=== PATIENT | male | born 1945 | race Caucasian/White ===

== ENCOUNTER 2017-10-17 16:28 | Observation (INO) | payer MEDICARE, BC ==
[~2017-10-17] VITALS: Ht 172.7 cm; Wt 92.6 kg
[2017-10-17] VITALS (7 sets, daily range): BP systolic 165–195; BP diastolic 84–98; PULSE 46–53; RESP 19–20; TEMP 97.6–98.4; O2SAT 95–98
[~2017-10-17 16:28] MED LIST: ACETAMINOPHEN 325 MG TAB PO PRN; ASPI81TA23 PO; ATEN50TA PO; AXIT5TAB PO; DILT1TAB4 PO; FOLICAP PO; GEMF600T PO; LEVO5TAB8 PO; LISI40TA PO; NALOXONE HCL 0.4 MG/ML AMP IV PUSH PRN; SODIUM CHLORIDE 0.9% FLUSH 10 ML FLUSH IV FLUSH PRN; TRIA37.53 PO
[2017-10-17] MEDS ORDERED: LEVO75TA3 PO (18:25)
[2017-10-17] MEDS ORDERED: NYST1POW12 TOPICAL (18:25)
[2017-10-17] MEDS ORDERED: ENALAPRILAT 1.25 MG/ML VIAL IV PUSH PRN (20:00)
[2017-10-17] MEDS: SODIUM CHLORIDE 0.9% FLUSH 10 ML FLUSH IV FLUSH SCH (20:45)
[2017-10-17] MEDS ORDERED: ATENOLOL 50 MG TAB PO SCH (21:00)
[2017-10-17] MEDS ORDERED: NYST0.1P (23:52)
[2017-10-18] VITALS: PULSE 48
[2017-10-18] MEDS: INLYTA 5 MG PO SCH ×2 (00:15→10:11)
[2017-10-18 03:58] VITALS: BP 151/84; PULSE 53; RESP 18; TEMP 97.7; O2SAT 98
[2017-10-18 04:00] VITALS: BP 151/84; PULSE 52; PULSE 53; RESP 18; TEMP 97.7; O2SAT 98
[2017-10-18 06:29] LABS: AUTOMATED NEUTROPHIL # 3.5 TH/MM3 (1.8-7.7); BASOPHIL % 0.2 % (0.0-2.0); EOSINOPHIL # 0.5 TH/MM3 (0-0.4); EOSINOPHIL % 9.5 % (0.0-4.0); HEMATOCRIT 40.9 % (39.0-51.0); HEMOGLOBIN 13.8 GM/DL (13.0-17.0); LYMPH % 12.2 % (9.0-44.0); LYMPHOCYTE # 0.6 TH/MM3 (1.0-4.8); MEAN CELL VOLUME 101.2 FL (80.0-100.0); MEAN CORPUSCULAR HEMOGLOBIN 34.1 PG (27.0-34.0); MEAN CORPUSCULAR HGB CONC 33.7 % (32.0-36.0); MEAN PLATELET VOLUME 7.2 FL (7.0-11.0); MONO % 12.2 % (0.0-8.0); MONOCYTE # 0.6 TH/MM3 (0-0.9); NEUT % 65.9 % (16.0-70.0); PLATELET COUNT 339 TH/MM3 (150-450); RED BLOOD COUNT 4.04 MIL/MM3 (4.50-5.90); RED CELL DISTRIBUTION WIDTH 13.5 % (11.6-17.2); WHITE BLOOD COUNT 5.2 TH/MM3 (4.0-11.0)
[2017-10-18 06:31] LABS: CHLORIDE 106 MEQ/L (98-107); SODIUM (NA) 139 MEQ/L (136-145)
[2017-10-18 06:34] LABS: CALCIUM 9.2 MG/DL (8.5-10.1)
[2017-10-18 06:35] LABS: ALBUMIN 3.2 GM/DL (3.4-5.0); BICARBONATE 21.1 MEQ/L (21.0-32.0); BLOOD UREA NITROGEN 17 MG/DL (7-18); GLUCOSE,RANDOM 104 MG/DL (74-106)
[2017-10-18 06:38] LABS: ALT (GPT) 23 U/L (12-78); AST (GOT) 28 U/L (15-37); GLOMERULAR FILTRATION RATE 74 ML/MIN (>89)
[2017-10-18 06:40] LABS: TOTAL BILIRUBIN ADULT 0.6 MG/DL (0.2-1.0); TOTAL PROTEIN 7.5 GM/DL (6.4-8.2)
[2017-10-18 06:41] LABS: ALKALINE PHOSPHATASE 79 U/L (45-117)
[2017-10-18 08:00] VITALS: BP 129/77; PULSE 54; PULSE 58; RESP 18; TEMP 97.8; O2SAT 98
[2017-10-18] MEDS ORDERED: IODIXANOL 320 MG/ML 10 ML VIAL (for Rad CT) IVCONTRAST ONE (08:00)
--- NOTE | 2017-10-18 08:25 | RADRPT ---
EXAM DATE: 10/18/2017 7:59 AM EDT AGE/SEX: 71 years / Male INDICATIONS: Chest pain. Elevated D-dimer. Evaluate for pulmonary embolism. CLINICAL DATA: This is the patient's initial encounter. Patient reports that signs and symptoms have been present for 2 days and indicates a pain score of 1/10. MEDICAL/SURGICAL HISTORY: Carcinoma, prostatic. Renal cell carcinoma. Hypertension. Nephrectomy, left. RADIATION DOSE: 19.93 CTDI (mGy) COMPARISON: No prior exams available for comparison. TECHNIQUE: Volumetric scanning was performed using a multi-row detector CT scanner during bolus infu zack of 50 ml Visipaque 320 (iodixanol) nonionic water-soluble contrast as a single exam dose. The d alberto was post processed with a variety of visualization algorithms including full volume maximum inten sity projection and sliding thin slab reformation. Using automated exposure control and adjustment o f the mA and/or kV according to patient size, radiation dose was kept as low as reasonably achievable to obtain optimal diagnostic quality images. DICOM format image data is available electronically fo r review and comparison. FINDINGS: Pulmonary Arteries: No filling defect is identified through the segmental and some of the subsegmenta l level pulmonary arteries. Lungs: No consolidation or pneumothorax is identified. Mediastinum: The heart and great vessels demonstrate no acute abnormality. There is extensive medias tinal lymphadenopathy with superior mediastinal lymph node on the last measuring 3.3 x 2.8 cm, enlarg ed AP window lymph node measuring 2.2 x 2.0 cm, an enlarged subcarinal lymph node measuring 4.4 x 3.1 cm, and an enlarged precarinal lymph node measuring 1.7 cm in short axis diameter. There is coronary artery calcification and moderate atherosclerotic disease of the aorta. Pleurae: There is trace left pleural fluid. No pleural thickening is present. Axillae: No lymphadenopathy. Musculoskeletal: No acute osseous abnormality is identified. There are degenerative changes of the t horacic spine. No lytic or blastic lesion is seen. Other: There are multiple lymph nodes in the upper abdomen and retroperitoneum with one of the large r lymph nodes measuring 2.7 x 2.0 cm. Also, there is enlarged left supraclavicular lymph node measuri ng 4.4 x 2.7 cm. A low-density lesion in the right lobe of the liver measures 2.5 cm and has density measurements characteristic of a hepatic cyst. CONCLUSION: 1. No PE is identified. There is trace left pleural fluid but otherwise no acute pulmonary abnormali ty is identified. 2. Extensive lymphadenopathy within the mediastinum, left supraclavicular region, and visualized upp er abdomen. Etiology is not identified on this examination and top differential diagnostic considerat ions are lymphoma or metastatic disease. Suggest obtaining abdomen and pelvis CT with IV contrast for further evaluation of the abdomen and pelvis. The patient may ultimately need biopsy of one of the l ymph nodes for further evaluation. 3. Coronary artery calcification and moderate atherosclerotic disease of the aorta. Electronically signed by: Naun Ricardo MD 10/18/2017 8:24 AM EDT
[2017-10-18] MEDS ORDERED: NYSTATIN 100,000 U/GM PWD 15 GM BTL TOPICAL SCH (09:00)
[2017-10-18] MEDS: SODIUM CHLORIDE 0.9% FLUSH 10 ML FLUSH IV FLUSH SCH (10:11)
--- NOTE | 2017-10-18 10:16 | HHI.HP ---
[facility] Primary Care Physician Non-Staff Admission Diagnosis Diagnoses: (1) Accelerated hypertension Diagnosis: Principal Chief Complaint: Elevated blood pressure Travel History International Travel<30 Days: No Contact w/Intl Traveler <30 Da: No History of Present Illness 71-year-old male with known history of hypertension, hyperlipidemia, stage IV renal carcinoma, hypothyroidism, history of prostate cancer who presented to the emergency department for evaluation of elevated blood pressure. Patient is currently undergoing immunotherapy with IV infusion and p.o. medication by Dr. Collins in [place]. Patient had developed a rash in his groin area and home health care was following him. They have been monitoring blood pressure and noticed that his systolic letter has been running high recently. They have been in contact with his primary medical doctor, however his primary doctor is out of the office at this time. Because her blood pressure was elevated they went to the emergency department for evaluation. Patient was given Apresoline in the emergency department with improvement of his blood pressure. The daughter was at bedside was able to obtain further information from her. The patient's systolic blood pressure has been elevated and patient has had bradycardia. She did some research and noticed that the immunotherapy medication that he is taking and will actually cause elevation in the blood pressure. Patient did not receive any medication last evening and his blood pressure has been stable since being hospitalized. They indicate that he does have infusion arranged for today. I long discussion with the patient, daughter about possible treatment plans. Will need to discuss further with his biomedical doctor and oncologist for treatment. Currently the patient is resting comfortably. Patient in agreement with treatment plan of contacting his primary call doctor, oncologist and discharged home. Patient denies any other symptoms. He adamantly indicates that he never had any type of chest pain, there is been no nausea, vomiting, diaphoresis. Patient states that he did have a problem with diarrhea in the past, however he takes fiber in he has not had any loose stools since then. Review of Systems Constitutional: DENIES: Diaphoretic episodes, Fatigue, Fever, Weight gain, Weight loss, Chills, Dizziness, Change in appetite, Night Sweats Eyes: DENIES: Blurred vision, Diplopia, Eye pain, Photosensitivity, Double Vision Ears, nose, mouth, throat: DENIES: Tinnitus, Hearing loss, Nasal discharge, Oral lesions, Throat pain, Ear Pain, Running Nose, Sinus Pain Respiratory: DENIES: Apneas, Cough, Snoring, Wheezing, Hemoptysis, Sputum production, Shortness of breath Cardiovascular: DENIES: Chest pain, Palpitations, Syncope, Dyspnea on Exertion , Lower Extremity Edema, Orthopnea Gastrointestinal: DENIES: Abdominal pain, Black stools, Bloody stools, Constipation, Diarrhea, Nausea, Vomiting, Difficulty Swallowing, Anorexia Musculoskeletal: COMPLAINS OF: Joint pain Neurologic: DENIES: Abnormal gait, Headache, Localized weakness, Paresthesias, Speech Problems, Tremor, Poor Balance Psychiatric: DENIES: Anxiety, Confusion, Mood changes, Depression Past Family Social History Past Medical History Hypertension Hyperlipidemia Stage IV renal carcinoma Osteoarthritis of the right hip History of prostate cancer Past Surgical History Tonsillectomy Lymph node biopsy Left nephrectomy Incisional hernia repair Right hand fifth digit fracture repair Reported Medications Reported Meds & Active Scripts Active Reported Nyata (Nystatin (Topical)) 100,000 Unit/Gram Pow Levothyroxine (Levothyroxine Sodium) 75 Mcg Tab 75 Mcg PO DAILY Nystatin 100,000 Unit/Gram Powder 100,000 Units TOPICAL BID Triamterene-Hydrochlorothiazide 37.5-25 Mg Cap 1 Cap PO DAILY Xyzal (Levocetirizine Dihydrochloride) 5 Mg Tablet 1 Tab PO DAILY Aspirin EC (Aspirin) 81 Mg Tabdr 81 Mg PO DAILY Gemfibrozil 600 Mg Tab 600 Mg PO BIDAC Take 30 minutes prior to breakfast and dinner. Inlyta (Axitinib) 5 Mg Tablet 1 Tab PO BID Folivane-F 125-1 mg (Ferrous Fumarate-Iron Polysacc) 125 Mg-1 Mg-40 Mg-3 Mg Cap 1 Tab PO DAILY Atenolol 50 Mg Tab 50 Mg PO BID Lisinopril 40 Mg Tab 40 Mg PO DAILY Diltiazem ER 24 HR 240 Mg Gume 240 Mg PO DAILY Allergies: Coded Allergies: No Known Allergies (Unverified , 10/17/17) Family History Reviewed is significant for both mother and father with diabetes, father had cancer Social History Patient denies any tobacco, alcohol or illicit drug Physical Exam Vital Signs Vital Signs Date Time Temp Pulse Resp B/P (MAP) Pulse Ox O2 Delivery O2 Flow Rate FiO2 10/18/17 04:00 52 10/18/17 04:00 97.7 53 18 151/84 (106) 98 10/18/17 03:58 97.7 53 18 151/84 (106) 98 10/18/17 01:28 19 10/18/17 00:00 48 10/17/17 23:36 97.8 51 19 165/84 (111) 97 10/17/17 20:00 46 10/17/17 19:54 97.6 46 19 195/98 (130) 97 10/17/17 19:50 97 21 10/17/17 18:38 98 21 10/17/17 18:00 53 10/17/17 16:20 98.4 48 20 186/91 (122) 95 Physical Exam GENERAL: Well-developed, well-nourished, in no acute distress. alert and orientated HEENT: Head is normocephalic without any lesions or masses noted. Facial features are symmetric. Eyes: Pupils equal round reactive to light. Extraocular muscles are intact. Conjunctivae were clear. Oropharyngeal: Pharynx without any erythema edema. Tongue is midline without deviation. Buccal mucosa is moist without any masses or lesions NECK: Supple without any masses. Trachea midline no deviation. No JVD, no bruits are appreciated CARDIAC: Regular rhythm, regular rate. S1/S2 are heard. No murmurs gallops or rubs. LUNGS: Clear to auscultation bilaterally. No wheeze, rhonchi or rales. No use of accessory muscles on inspiration or expiration. ABDOMEN: Soft, nontender. Nondistended. Bowel sounds heard in all 4 quadrants. No organomegaly or masses. Negative rebound, negative guarding EXTREMITIES: No edema, pulses are equal bilaterally. No cyanosis or clubbing NEUROLOGY: Mood and affect appear appropriate. Cranial nerves II through XII grossly intact. Muscle strength 5/5 in upper and lower extremities bilaterally. Deep tendon reflexes are 2+ in upper and lower extremities bilaterally. Laboratory Laboratory Tests Test 10/17/17 17:12 10/17/17 22:16 10/18/17 05:48 Troponin I LESS THAN 0.02 LESS THAN 0.02 White Blood Count 5.2 Red Blood Count 4.04 Hemoglobin 13.8 Hematocrit 40.9 Mean Corpuscular Volume 101.2 Mean Corpuscular Hemoglobin 34.1 Mean Corpuscular Hemoglobin Concent 33.7 Red Cell Distribution Width 13.5 Platelet Count 339 Mean Platelet Volume 7.2 Neutrophils (%) (Auto) 65.9 Lymphocytes (%) (Auto) 12.2 Monocytes (%) (Auto) 12.2 Eosinophils (%) (Auto) 9.5 Basophils (%) (Auto) 0.2 Neutrophils # (Auto) 3.5 Lymphocytes # (Auto) 0.6 Monocytes # (Auto) 0.6 Eosinophils # (Auto) 0.5 Basophils # (Auto) 0.0 CBC Comment DIFF FINAL Differential Comment Blood Urea Nitrogen 17 Creatinine 1.00 Random Glucose 104 Total Protein 7.5 Albumin 3.2 Calcium Level 9.2 Alkaline Phosphatase 79 Aspartate Amino Transf (AST/SGOT) 28 Alanine Aminotransferase (ALT/SGPT) 23 Total Bilirubin 0.6 Sodium Level 139 Potassium Level 3.8 Chloride Level 106 Carbon Dioxide Level 21.1 Anion Gap 12 Estimat Glomerular Filtration Rate 74 Result Diagram: 10/18/17 0548 10/18/17 [address] Angiography 10/18/17 0000 Signed Impressions: CONCLUSION: 1. No PE is identified. There is trace left pleural fluid but otherwise no acu te pulmonary abnormality is identified. 2. Extensive lymphadenopathy within the mediastinum, left supraclavicular courtney on, and visualized upper abdomen. Etiology is not identified on this examinatio n and top differential diagnostic considerations are lymphoma or metastatic dis ease. Suggest obtaining abdomen and pelvis CT with IV contrast for further eval uation of the abdomen and pelvis. The patient may ultimately need biopsy of one of the lymph nodes for further evaluation. 3. Coronary artery calcification and moderate atherosclerotic disease of the a delia. Caprini VTE Risk Assessment Caprini VTE Risk Assessment: Mod/High Risk (score >= 2) Caprini Risk Assessment Model Point Value = 1 Point Value = 2 Point Value = 3 Point Value = 5 Age 41-60 Minor surgery BMI > 25 kg/m2 Swollen legs Varicose veins or History of unexplained or recurrent spontaneous Oral contraceptives or hormone replacement Sepsis (< 1 month) Serious lung disease, including pneumonia (< 1 month) Abnormal pulmonary function Acute myocardial infarction Congestive heart failure (< 1 month) History of inflammatory bowel disease Medical patient at bed rest Age 61-74 Arthroscopic surgery Major open surgery (> 45 min) Laparoscopic surgery (> 45 min) Malignancy Confined to bed (> 72 hours) Immobilizing plaster cast Central venous access Age >= 75 History of VTE Family history of VTE Factor V Leiden Prothrombin [id number] Lupus anticoagulant Anticardiolipin antibodies Elevated serum homocysteine Heparin-induced thrombocytopenia Other congenital or acquired thrombophilia Stroke (< 1 month) Elective arthroplasty Hip, pelvis, or leg fracture Acute spinal cord injury (< 1 month) Prophylaxis Regimen Total Risk Factor Score Risk Level Prophylaxis Regimen 0-1 Low Early ambulation 2 Moderate Order ONE of the following: *Sequential Compression Device (SCD) *Heparin 5000 units SQ BID 3-4 Higher Order ONE of the following medications: *Heparin 5000 units SQ TID *Enoxaparin/Lovenox 40 mg SQ daily (WT < 150 kg, CrCl > 30 mL/min) *Enoxaparin/Lovenox 30 mg SQ daily (WT < 150 kg, CrCl > 10-29 mL/min) *Enoxaparin/Lovenox 30 mg SQ BID (WT < 150 kg, CrCl > 30 mL/min) AND/OR *Sequential Compression Device (SCD) 5 or more Highest Order ONE of the following medications: *Heparin 5000 units SQ TID (Preferred with Epidurals) *Enoxaparin/Lovenox 40 mg SQ daily (WT < 150 kg, CrCl > 30 mL/min) *Enoxaparin/Lovenox 30 mg SQ daily (WT < 150 kg, CrCl > 10-29 mL/min) *Enoxaparin/Lovenox 30 mg SQ BID (WT < 150 kg, CrCl > 30 mL/min) AND *Sequential Compression Device (SCD) Assessment and Plan Assessment and Plan Accelerated hypertension, resolved -Could be secondary to medication side effect -Discussed with patient's oncologist and primary medical doctor's office -Primary medical doctor's office spoke with Dr. Mullins, he indicated holding atenolol, Cardizem, hydrochlorothiazide. He does agree with the use of amlodipine to avoid any further bradycardia -Patient's oncologist office indicated to continue to hold Inlyta until seen in their office -Consider amlodipine Renal carcinoma stage IV -CT scan was done of the chest secondary to elevated blood pressure, elevated d- dimer. Does indicate significant mediastinal adenopathy -Results of CT was discussed with the family and patient. They indicate that he is being treated now by oncology with immunotherapy. They are aware of the patient having significant adenopathy. Has had recent lymph node biopsy -Discuss with patient's oncologist for further recommendations and management -Patient was due for hydration therapy today with 500 cc of IV fluid in oncologist office. We will give fluid bolus while hospitalized today. They are to follow-up with their oncologist within the next 3 days. Hypothyroidism -Continue replacement therapy DVT prevention -Sequential compression devices Discharge disposition Discharge home in stable condition Activity: Ad meir. Diet: Regular diet Medication per medication reconciliation Follow-up with primary medical doctor in 1 week Jason Mercado Oct 18, 2017 10:16
[2017-10-18] MEDS ORDERED: amLODIPine BESYLATE 5 MG TAB PO SCH (10:30)
[2017-10-18] MEDS ORDERED: SODIUM CHLORID 0.9% 500 ML INJ 500 ML IV ONE (10:45)
[2017-10-18] MEDS ORDERED: AMLO5 PO (10:59)
--- NOTE | 2017-10-18 11:00 | HHI.DCPOC ---
Discharge Care Plan Diagnosis: (1) Accelerated hypertension Goals to Promote Your Health * To prevent worsening of your condition and complications * To maintain your health at the optimal level Directions to Meet Your Goals Take your medications as prescribed Follow your dietary instruction Follow activity as directed Keep your appointments as scheduled Take your immunizations and boosters as scheduled If your symptoms worsen call your PCP, if no PCP go to Urgent Care Center or Emergency Room Smoking is Dangerous to Your Health. Avoid second hand smoke Call the 24-hour hour crisis hotline for domestic abuse at Jason Mercado Oct 18, 2017 11:00
== END 2017-10-18 13:02 | disposition home or self-care (01) ==
LOC: PHEDDLT 16:28 → PH3A 16:29
PROVIDERS: ADMIT Hospitalist; ATTEND Hospitalist
DX: I16.0 Hypertensive urgency (principal); I10 Essential (primary) hypertension; I70.0 Atherosclerosis of aorta; E78.5 Hyperlipidemia, unspecified; E03.9 Hypothyroidism, unspecified; R00.1 Bradycardia, unspecified; R79.1 Abnormal coagulation profile; R07.9 Chest pain, unspecified; C64.9 Malignant neoplasm of unspecified kidney, except renal pelvis; R59.0 Localized enlarged lymph nodes; Z85.46 Personal history of malignant neoplasm of prostate
CPT/HCPCS: 71045; 71275; 80053; 82550; 83690; 83880; 84443; 84484; 85025; 85379; 93005; 96361; 96374; 99285; G0378; J0360; J7040; Q9967